=== PATIENT | female | born 1995 | race Caucasian/White ===

== ENCOUNTER 2021-01-04 06:04 | Day surgery (SDC) | payer OTHER ==
[2021-01-04] MEDS ORDERED: Lactated Ringers 1,000 ML IV SCH (06:30)
[2021-01-04] MEDS ORDERED: DIPRIVAN 200 MG/20 ML IV ONE ×2 (07:37→07:51)
[2021-01-04 08:36] VITALS: PULSE 60; O2SAT 98
[2021-01-04 08:54] VITALS: BP 117/60
--- NOTE | 2021-01-04 10:52 | OP ---
SURGERY DATE/TIME: 01/04/2021 0732 PREOPERATIVE DIAGNOSES: 1) Abdominal pain. 2) Chronic diarrhea. POSTOPERATIVE DIAGNOSIS: Normal colon. PROCEDURE: Diagnostic colonoscopy. SURGEON: Damon Mendiola M.D. ANESTHESIA: MAC by Bashir Lombardi CRNA. ESTIMATED BLOOD LOSS: Minimal. SPECIMENS: There were two cold forceps biopsies from the terminal ileum and two random cold forceps biopsies from the sigmoid colon. DESCRIPTION OF PROCEDURE: After informed written consent was obtained, the patient was taken to the endoscopy suite. She was placed in left lateral decubitus position and anesthesia was titrated to desired level of consciousness. A digital rectal exam showed normal sphincter tone and no internal lesions. The scope was inserted into the rectum and sequentially the entire colonic mucosa was traversed. The level of cecum was reached and verified with direct visualization of ileocecal valve. The terminal ileum was inspected with no obvious ulcerations or bleeding present. Two cold forceps biopsies were taken from the terminal ileum and sent for pathology testing. Blood loss is minimal there. Upon withdrawal careful mucosal inspection revealed no gross colonic mucosal abnormalities. Two random biopsies were taken from the sigmoid colon area but no obvious visible abnormalities were appreciable prior to withdrawal. Retroflexion was performed and showed no internal lesions. The scope was removed and the patient was transferred to the recovery room in good condition. She was advised to follow up in a week for pathology results.
== END 2021-01-04 09:10 | disposition home or self-care (01) ==
LOC: SDC 06:04
PROVIDERS: ATTEND Family Medicine
DX: R10.9 Unspecified abdominal pain (principal); K52.9 Noninfective gastroenteritis and colitis, unspecified
CPT/HCPCS: 36415; 84702; J2704